=== PATIENT | male | born 1980 | race Caucasian/White ===

== ENCOUNTER → 2022-10-01 | Day surgery (SDC) | payer OTHER ==
[~2022-10-01] MED LIST: FENTANYL CITRATE/PF 100MCG/2 ML INJ ONE; GLYCOPYRROLATE INJ 0.2 MG/ML VIAL ONE; LACTATED RINGER'S 1,000 ML ONE; LIDOCAINE HCL 2% LOCAL INJ 5 ML SDV VIAL INJ ONE; MIDAZOLAM HCL 2 MG/2 ML VIAL ONE; ONDANSETRON HCL INJ 2MG/ML 2ML 2 MG/ML VIAL ONE; POVIDONE IODINE 0.05% 0.05 % ML PO ONE; PROPOFOL IV EMULSION 10 MG/ML 20 ML VIAL ONE; TESTOSTERO100 MG/1 M IM; VITAMIN D310 MCG PO
[2022-10-01 08:39] VITALS: BP 117/83
== END | disposition home or self-care (01) ==
LOC: ENDO 06:01
PROVIDERS: ATTEND Surgery
DX: K21.9 Gastro-esophageal reflux disease without esophagitis (principal); K20.90 Esophagitis, unspecified without bleeding; K44.9 Diaphragmatic hernia without obstruction or gangrene; K95.09 Other complications of gastric band procedure; K31.1 Adult hypertrophic pyloric stenosis; J45.909 Unspecified asthma, uncomplicated; Y84.8 Other medical procedures as the cause of abnormal reaction of the patient, or of later complication, without mention of misadventure at the time of the procedure; Z68.33 Body mass index [BMI] 33.0-33.9, adult
CPT/HCPCS: 43239; 88305; 88312; 93005; J2001; J2250; J2405; J2704; J3010; J7121

== ENCOUNTER 2022-11-12 05:59 | Observation (INO) | payer OTHER ==
[~2022-11-12] VITALS: Ht 172.7 cm; Wt 90.7 kg
[~2022-11-12 05:59] MED LIST changes: -FENTANYL CITRATE/PF 100MCG/2 ML INJ ONE; -GLYCOPYRROLATE INJ 0.2 MG/ML VIAL ONE; -LACTATED RINGER'S 1,000 ML ONE; -LIDOCAINE HCL 2% LOCAL INJ 5 ML SDV VIAL INJ ONE; -MIDAZOLAM HCL 2 MG/2 ML VIAL ONE; -ONDANSETRON HCL INJ 2MG/ML 2ML 2 MG/ML VIAL ONE; -POVIDONE IODINE 0.05% 0.05 % ML PO ONE; -PROPOFOL IV EMULSION 10 MG/ML 20 ML VIAL ONE
[2022-11-12] MEDS ORDERED: LACTATED RINGER'S 1,000 ML ONE (06:55)
[2022-11-12] MEDS ORDERED: CEFAZOLIN SODIUM 2 GM ONE (06:55)
[2022-11-12 07:08] LABS: BASOPHILS # (AUTO) 0.1 (0.0-0.1); BASOPHILS % 0.8 % (0.0-1.0); EOSINOPHILS # (AUTO) 0.1 (0.0-0.4); EOSINOPHILS % 1.1 % (0.0-6.0); HEMATOCRIT 47.6 % (38.2-49.6); HEMOGLOBIN 16.7 g/dL (14.0-18.0); LYMPHOCYTES # (AUTO) 2.3 (1.0-3.2); LYMPHOCYTES % 31.4 % (18.0-39.1); MEAN CORPUSCULAR HEMOGLOBIN 31.2 pg (28-32); MEAN CORPUSCULAR HGB CONC 35.1 g/dL (31-35); MEAN CORPUSCULAR VOLUME 88.8 fL (81-99); MONOCYTES # (AUTO) 0.8 (0.2-0.8); MONOCYTES % 10.9 % (4.4-11.3); NEUTROPHILS # (AUTO) 4.1 (2.1-6.9); NEUTROPHILS % 54.9 % (38.7-80.0); PLATELET COUNT 254 x10e3/uL (140-360); RED BLOOD COUNT 5.36 x10e6/uL (4.3-5.7); RED CELL DISTRIBUTION WIDTH 12.5 % (11.7-14.4)
[2022-11-12] MEDS ORDERED: SCOPOLAMINE 1 MG PATCH TOP SCH (07:30)
[2022-11-12] MEDS ORDERED: HYDROCODONE/APAP 7.5MG-325MG 1 EA TAB PO PRN (07:30)
[2022-11-12] MEDS ORDERED: ONDANSETRON HCL INJ 2MG/ML 2ML 2 MG/ML VIAL IV PRN (07:30)
[2022-11-12] MEDS ORDERED: BUPIVACAINE HCL 0.25% 10ML MPF VIAL INJ ONE (07:51)
[2022-11-12] MEDS ORDERED: HYDROXYZINE HCL 50 MG/ML VIAL IM ONE (08:00)
[2022-11-12] MEDS ORDERED: SUGAMMADEX SODIUM 200 MG/2 ML VIAL IV ONE (09:25)
[2022-11-12] MEDS ORDERED: SUCCINYLCHOLINE CHLORIDE 20 MG/ML 10ML VIAL ONE ×2 (09:25→12:32)
[2022-11-12] MEDS ORDERED: ACETAMINOPHEN 1000 MG/100 ML 100 ML IV ONE (09:25)
[2022-11-12] MEDS ORDERED: GLYCOPYRROLATE INJ 0.2 MG/ML VIAL ONE (12:32)
[2022-11-12] MEDS ORDERED: LIDOCAINE HCL 2% LOCAL INJ 5 ML SDV VIAL INJ ONE (12:32)
[2022-11-12] MEDS ORDERED: DEXAMETHASONE SOD PHOS INJ 4 MG/ML SDV ONE (12:32)
[2022-11-12] MEDS ORDERED: ESMOLOL HCL 100MG/10ML 10 MG/ML VIAL ONE (12:32)
[2022-11-12] MEDS ORDERED: ROCURONIUM BROMIDE 10 MG/ML 5ML VIAL IV ONE (12:32)
[2022-11-12] MEDS ORDERED: SEVOFLURANE INHAL SOLN 250 ML PEN BTL ONE (12:32)
[2022-11-12] MEDS ORDERED: PROPOFOL IV EMULSION 10 MG/ML 20 ML VIAL ONE (12:32)
[2022-11-12] MEDS ORDERED: ONDANSETRON HCL INJ 2MG/ML 2ML 2 MG/ML VIAL ONE ×2 (12:32→13:11)
[2022-11-12] MEDS ORDERED: POVIDONE IODINE 0.05% 0.05 % ML PO ONE (12:32)
[2022-11-12] MEDS ORDERED: NEOSTIGMINE 1 MG/ML 10ML VIAL ONE (12:32)
[2022-11-12] MEDS ORDERED: FENTANYL CITRATE/PF 100MCG/2 ML INJ ONE ×2 (12:56→13:08)
[2022-11-12] MEDS ORDERED: MIDAZOLAM HCL 2 MG/2 ML VIAL ONE (13:08)
[2022-11-12] MEDS ORDERED: KETAMINE HCL INJ 50 MG/ML 10 ML VIAL ONE (13:08)
[2022-11-12] MEDS ORDERED: METOCLOPRAMIDE HCL 10 MG/2ML VIAL ONE (13:12)
[2022-11-12] MEDS ORDERED: HYDROMORPHONE 1MG/1ML INJ ONE (13:19)
[2022-11-12] MEDS: LACTATED RINGER'S 1,000 ML IV SCH ×2 (15:30→17:12)
[2022-11-12 16:00] VITALS: BP 149/80; PULSE 65; RESP 13; TEMP 97; O2SAT 96
[2022-11-12 16:27] VITALS: PULSE 74; RESP 20; O2SAT 97
[2022-11-12 16:41] VITALS: BP 152/95; PULSE 61; RESP 18; TEMP 97.9; O2SAT 99
[2022-11-12] MEDS: Morphine 2mg Syringe 2 MG/ML SYR IV PRN (17:07)
[2022-11-12 19:33] VITALS: PULSE 70; RESP 18; O2SAT 98
[2022-11-12 20:00] VITALS: BP 141/91; PULSE 76; RESP 18; TEMP 98.7; O2SAT 98
[2022-11-12] MEDS: ENOXAPARIN SOD INJ 40 MG/0.4 ML SYR SC SCH ×2 (20:00→21:51)
[2022-11-12] MEDS ORDERED: HYDRALAZINE HCL 20 MG/ML VIAL IV PRN (21:15)
[2022-11-12] MEDS ORDERED: ACETAMINOPHEN 325 MG TAB PO PRN (21:15)
[2022-11-13] VITALS (7 sets, daily range): BP systolic 143–150; BP diastolic 88–94; PULSE 63–83; RESP 16–18; TEMP 98.1–99.3; O2SAT 95–99
[2022-11-13] MEDS: LACTATED RINGER'S 1,000 ML IV SCH ×2 (00:07→07:49)
[2022-11-13] MEDS: Morphine 2mg Syringe 2 MG/ML SYR IV PRN ×2 (02:32→08:17)
[2022-11-13 05:50] LABS: BASOPHILS % 0.3 % (0.0-1.0); HEMATOCRIT 46.7 % (38.2-49.6); HEMOGLOBIN 16.5 g/dL (14.0-18.0); LYMPHOCYTES # (AUTO) 1.6 (1.0-3.2); LYMPHOCYTES % 10.3 % (18.0-39.1); MEAN CORPUSCULAR HEMOGLOBIN 31.6 pg (28-32); MEAN CORPUSCULAR HGB CONC 35.3 g/dL (31-35); MEAN CORPUSCULAR VOLUME 89.5 fL (81-99); MONOCYTES # (AUTO) 1.6 (0.2-0.8); NEUTROPHILS # (AUTO) 12.4 (2.1-6.9); NEUTROPHILS % 78.5 % (38.7-80.0); PLATELET COUNT 284 x10e3/uL (140-360); RED BLOOD COUNT 5.22 x10e6/uL (4.3-5.7); RED CELL DISTRIBUTION WIDTH 12.1 % (11.7-14.4)
[2022-11-13 06:19] LABS: ALBUMIN 3.4 g/dL (3.5-5.0); ALBUMIN/GLOBULIN RATIO 1.1 (0.8-2.0); CALCIUM 8.6 mg/dL (8.4-10.2); CREATININE, SERUM 1.06 mg/dL (0.72-1.25); PHOSPHORUS 3.2 MG/DL (2.3-4.7)
[2022-11-13] MEDS: ENOXAPARIN SOD INJ 40 MG/0.4 ML SYR SC SCH (08:00)
[2022-11-13] MEDS ORDERED: DIATRIZOATE MEGL/DIATRIZOA SOD 120 ML BTL PO ONE (09:30)
[2022-11-13] MEDS ORDERED: ONDANSETRON ODT4 MG PO (11:48)
== END 2022-11-13 13:33 | disposition home or self-care (01) ==
LOC: OR 05:59 → PACU V 13:09 → MED/SURG2 15:14
PROVIDERS: ADMIT Surgery; ATTEND Surgery
DX: K44.9 Diaphragmatic hernia without obstruction or gangrene (principal); K21.9 Gastro-esophageal reflux disease without esophagitis; Z46.59 Encounter for fitting and adjustment of other gastrointestinal appliance and device; E66.01 Morbid (severe) obesity due to excess calories; R03.0 Elevated blood-pressure reading, without diagnosis of hypertension; K31.1 Adult hypertrophic pyloric stenosis; J45.909 Unspecified asthma, uncomplicated; K66.0 Peritoneal adhesions (postprocedural) (postinfection); R13.10 Dysphagia, unspecified; R11.2 Nausea with vomiting, unspecified; Z68.33 Body mass index [BMI] 33.0-33.9, adult; Z68.30 Body mass index [BMI] 30.0-30.9, adult
CPT/HCPCS: 36415 ×2; 43644; 43774; 74246; 80053; 83735; 84100; 85025 ×2; 94799 ×2; G0378 ×2; J0131; J0330; J0360; J1100; J1170; J1650 ×2; J2001; J2250; J2270 ×2; J2405; J2704; J2710; J2765; J3010; J7121 ×2; Q0177; Q9963